=== PATIENT | female | born 1945 | race Caucasian/White ===

== ENCOUNTER 2018-02-16 07:30 | Emergency (ER) | payer MEDICARE ==
[2018-02-16] MEDS ORDERED: predniSONE 20 MG TABLET PO STA (07:50)
[2018-02-16] MEDS ORDERED: IPRATROPIUM/ALBUTEROL 3 ML NEB INH STA (07:50)
--- NOTE | 2018-02-16 07:54 | ED Physician Documentation ---
PD HPI URI - Stated complaint Stated Complaint: CONGESTION - Chief complaint Chief Complaint: Resp - History obtained from History obtained from: Patient - History of Present Illness Timing - onset: How many days ago (3) Timing duration: Days (3) Timing details: Gradual onset Pain level max: 5 Pain level now: 4 Associated symptoms: Fever (Subjective), Chills, Ear pain, Nasal congestion, Rhinorrhea, Dry cough. No: Hemoptysis, Chest pain Contributing factors: Travel (visiting from [place], had been on a cruise as well) Improves by: Rest Worsened by: Activity, Breathing Similar symptoms before: Diagnosis (bronchitis) Recently seen: Not recently seen Review of Systems Ten Systems: 10 systems reviewed and negative Constitutional: denies: Chills Nose: reports: Rhinorrhea / runny nose, Congestion GI: denies: Vomiting : reports: Other (States she would like to be checked for UTI because she has been sitting a lot while traveling and often "has a UTI and does not know it".) . denies: Dysuria, Frequency, Hesitancy Skin: denies: Rash Musculoskeletal: denies: Neck pain, Back pain Neurologic: denies: Headache PD PAST MEDICAL HISTORY - Past Medical History Past Medical History: Yes Psych: Depression - Present Medications Home Medications: Ambulatory Orders Medication Instructions Recorded Confirmed Albuterol Sulf [Ventolin Hfa 1 - 2 puffs INH Q4HR PRN #1 inhaler 02/16/18 Inhaler] Azithromycin [Zithromax] 0 mg PO DAILY #6 tablet 02/16/18 Cetirizine HCl/Pseudoephedrine 1 each PO BID PRN #30 tab.er.12h 02/16/18 [Zyrtec-D Tablet] FLUoxetine [PROzac] 1 tab PO DAILY 02/16/18 02/16/18 predniSONE [Prednisone] 40 mg PO DAILY #10 tablet 02/16/18 rOPINIRole [Requip] 1 tab PO DAILY 02/16/18 02/16/18 - Allergies Allergies/Adverse Reactions: Allergies Allergy/AdvReac Type Severity Reaction Status Date / Time No Known Drug Allergies Allergy Verified 02/16/18 07:41 - Living Situation Living Situation: reports: With family Living Arrangement: reports: At home - Social History Does the pt smoke?: No Does the pt have substance abuse?: No - Family History Family history: reports: Non contributory PD ED PE NORMAL - Vitals Vital signs reviewed: Yes - General General: Alert and oriented X 3, No acute distress, Well developed/nourished - HEENT HEENT: PERRL, Ears normal, Moist mucous membranes, Pharynx benign - Neck Neck: Supple, no meningeal sign - Cardiac Cardiac: RRR - Respiratory Respiratory: No respiratory distress, Other (Mild wheezing bilaterally, especially in the right lower lobe.) - Abdomen Abdomen: Soft, Non tender, Non distended - Back Back: No CVA TTP, No spinal TTP - Derm Derm: Warm and dry - Extremities Extremities: No edema - Neuro Neuro: Alert and oriented X 3 - Psych Psych: Normal mood, Normal affect Results - Vitals Vitals: Vital Signs - 24 hr 02/16/18 02/16/18 02/16/18 07:37 07:53 08:17 Temperature 36.2 C L 36.4 C L Heart Rate 83 61 90 Respiratory 18 16 20 Rate Blood Pressure 121/61 132/78 H O2 Saturation 96 98 02/16/18 08:51 Temperature Heart Rate 80 Respiratory 16 Rate Blood Pressure 124/72 O2 Saturation 99 Oxygen O2 Source Room air - Labs Labs: Laboratory Tests 02/16/18 08:00 Urine Color YELLOW Urine Clarity CLEAR Urine pH 5.5 Ur Specific Amory >=1.030 H Urine Protein NEGATIVE Urine Glucose (UA) NEGATIVE Urine Ketones NEGATIVE Urine Occult Blood SMALL H Urine Nitrite NEGATIVE Urine Bilirubin NEGATIVE Urine Urobilinogen 0.2 (NORMAL) Ur Leukocyte Esterase SMALL H Urine RBC 0-5 Urine WBC 6-10 H Ur Squamous Epith Cells MOD Squamous H Urine Bacteria Few Ur Microscopic Review INDICATED Urine Culture Comments NOT INDICATED - Rads (name of study) cxr Radiology: Prelim report reviewed, EMP read contemporaneously, See rad report ( No acute disease) PD MEDICAL DECISION MAKING - ED course Complexity details: reviewed results, re-evaluated patient, considered differential, d/w patient ED course: Patient is a 72-year-old female who presents to the emergency department what appears to be a viral upper respiratory infection complicated by wheezing. Feels better after DuoNeb treatment as well as steroids. Does have a history of recurrent bronchitis/pneumonia. She is traveling and therefore will write a prescription for her to fill if she does not improve in the next few days. We will have her follow-up closely with her doctor for further evaluation and care. Does not appear to have a UTI at this time. Appears contaminant. Breathing much improved after nebulizer treatment. Patient counseled regarding signs and symptoms for which I believe and urgent re-evaluation would be necessary. Patient with good understanding of and agreement to plan and is comfortable going home at this time This document was made in part using voice recognition software. While efforts are made to proofread this document, sound alike and grammatical errors may occur. - Sepsis Event Vital Signs: Vital Signs - 24 hr 02/16/18 02/16/18 02/16/18 07:37 07:53 08:17 Temperature 36.2 C L 36.4 C L Heart Rate 83 61 90 Respiratory 18 16 20 Rate Blood Pressure 121/61 132/78 H O2 Saturation 96 98 02/16/18 08:51 Temperature Heart Rate 80 Respiratory 16 Rate Blood Pressure 124/72 O2 Saturation 99 Oxygen O2 Source Room air Departure - Departure Disposition: 01 Home, Self Care Clinical Impression: Upper respiratory tract infection Qualifiers: URI type: unspecified viral URI Qualified Code(s): J06.9 - Acute upper respiratory infection, unspecified Condition: Good Instructions: ED URI Viral W Wheezing Follow-Up: your,doctor in 1 week [Other] Prescriptions: Albuterol Sulf [Ventolin Hfa Inhaler] 1 - 2 puffs INH Q4HR PRN #1 inhaler PRN Reason: Shortness Of Air/Wheezing Azithromycin [Zithromax] 0 mg PO DAILY #6 tablet Cetirizine HCl/Pseudoephedrine [Zyrtec-D Tablet] 1 each PO BID PRN #30 tab.er.12h PRN Reason: Nasal Congestion predniSONE [Prednisone] 40 mg PO DAILY #10 tablet Comments: Return if you worsen. This should improve over the next few days. If you are not improving, start the antibiotics at that time. Discharge Date/Time: 02/16/18 08:49
--- NOTE | 2018-02-16 08:10 | XRAY Report ---
Procedure Date: 02/16/2018 Accession Number: [id number] / [id number] Procedure: XR - Chest 2 View X-Ray CPT Code: 61328 FULL RESULT: EXAM: CHEST RADIOGRAPHY EXAM DATE: 02/16/2018 08:01 AM. CLINICAL HISTORY: Fever, cough. COMPARISON: None. TECHNIQUE: 2 views. FINDINGS: Lungs/Pleura: Minimal bibasal opacity, probably atelectasis. Possible small calcified granuloma at the right lower lung. Mediastinum: Heart and mediastinal contours are unremarkable. Other: None. IMPRESSION: No convincing acute cardiopulmonary abnormality. [facility]
[2018-02-16 08:16] LABS: BILIRUBIN,URINE NEGATIVE (NEGATIVE); GLUCOSE, URINE (UA) NEGATIVE (NEGATIVE); KETONES,URINE (UA) NEGATIVE (NEGATIVE); LEUKOCYTE ESTERASE, URINE SMALL (NEGATIVE); NITRITE,URINE NEGATIVE (NEGATIVE); OCCULT BLOOD,URINE SMALL (NEGATIVE); PH,URINE 5.5 PH (5.0-7.5); PROTEIN,URINE NEGATIVE (NEGATIVE); UROBILINOGEN,URINE 0.2 (NORMAL) E.U./dL (NORMAL)
[2018-02-16 08:33] LABS: BACTERIA,URINE Few /HPF (None Seen); CLARITY,URINE CLEAR (CLEAR); RBC,URINE 0-5 /HPF (0-5); SQUAMOUS EPITHELIAL CELL,UR MOD Squamous (<= Few)
[2018-02-16 08:52] VITALS: BP 124/72
== END 2018-02-16 08:49 | disposition home or self-care (01) ==
LOC: ED 07:30
DX: J06.9 Acute upper respiratory infection, unspecified (principal)
CPT/HCPCS: 71046; 81001; 94640; 94664; 99283; J7512; 81003; 87086